=== PATIENT | male | born 1985 | race Caucasian/White ===

== ENCOUNTER 2024-05-05 11:31 | Emergency (ER) | payer MEDICAID ==
[2024-05-05] MEDS: cefTRIAXone 500 MG Vial IM ONE (13:29)
[2024-05-05] MEDS: Lidocaine 1% PF 2 ML SDV INJECT ONE (13:29)
[2024-05-05 13:45] LABS: C. TRACHOMATIS BY PCR NOT DETECTED; N. GONORRHOEAE BY PCR NOT DETECTED
[2024-05-05 13:51] LABS: APPEARANCE,URINE CLOUDY; BILIRUBIN,URINE NEGATIVE (NEGATIVE); COLOR,URINE YELLOW; GLUCOSE,URINE NEGATIVE (NEGATIVE); KETONES,URINE NEGATIVE (NEGATIVE); LEUKOCYTE ESTERASE,URINE NEGATIVE (NEGATIVE); NITRITE,URINE NEGATIVE (NEGATIVE); OCCULT BLOOD,URINE TRACE-INTACT (NEGATIVE); PH,URINE 5.5 (5.0-8.0); PROTEIN,URINE NEGATIVE (NEGATIVE); UROBILINOGEN,URINE 0.2 EU/dL (<2.0)
[2024-05-05 13:59] LABS: AMORPHOUS SEDIMENT,URINE HEAVY (NEGATIVE); BACTERIA,URINE FEW (NEGATIVE); EPITHELIAL CELLS,URINE RARE (NONE-FEW); RBC,URINE 0-2 (0-2/HPF); WBC,URINE 0-1 (0-5/HPF)
== END 2024-05-05 13:45 | disposition home or self-care (01) ==
LOC: MW.ED 11:31
DX: N36.9 Urethral disorder, unspecified (principal); Z79.2 Long term (current) use of antibiotics; Z75.8 Other problems related to medical facilities and other health care
CPT/HCPCS: 81001; 87491; 87591; 96372; 99283; J0696; J3490

== ENCOUNTER 2024-12-15 14:11 | Emergency (ER) | payer MEDICAID ==
[2024-12-15] MEDS: Ketorolac 30 MG/ML SDV IM ONE (16:02)
[2024-12-15] MEDS: Orphenadrine 60 MG/2 ML Inj IM ONE (16:02)
== END 2024-12-15 17:25 | disposition home or self-care (01) ==
LOC: MW.ED 14:11
DX: M25.561 Pain in right knee (principal); Z75.3 Unavailability and inaccessibility of health-care facilities; Z79.899 Other long term (current) drug therapy
CPT/HCPCS: 73562; 96372; 99283; J1885; J2360; 99282